=== PATIENT | female | born 1980 | race Caucasian/White ===

== ENCOUNTER 2018-03-04 13:16 | Emergency (ER) | payer MEDICAID ==
[~2018-03-04] VITALS: Ht 157.5 cm; Wt 87.0 kg
[~2018-03-04 13:16] MED LIST: [UNRECOGNIZED DRUG - OTHER]
[2018-03-04] MEDS ORDERED: LIDOCAINE HCL 1% 20ML VIAL (Pyxis) INJ INFIL ONE (15:00)
[2018-03-04] MEDS ORDERED: BACITRACIN ZINC OINT UDPKT TOP ONE (16:15)
[2018-03-04 16:22] VITALS: BP 124/69
== END 2018-03-04 16:24 | disposition home or self-care (01) ==
LOC: ER 13:51
DX: L60.0 Ingrowing nail (principal); Z98.890 Other specified postprocedural states
CPT/HCPCS: 11730; 99283; A4217; J3490; Z7610